=== PATIENT | female | born 1945 | race African-American/Black ===

== ENCOUNTER 2024-02-27 | Emergency (ER) | payer MEDICARE, BC ==
[~2024-02-27] VITALS: Ht 160 cm; Wt 67.0 kg
[2024-02-27 00:03] VITALS: BP 147/79; PULSE 96; RESP 14; TEMP 97.6; O2SAT 99
== END 2024-02-27 01:30 | disposition left against medical advice (07) ==
LOC: ER
DX: R05.9 Cough, unspecified (principal); R07.89 Other chest pain; E11.9 Type 2 diabetes mellitus without complications
CPT/HCPCS: 71045; 93005; 99283

== ENCOUNTER 2025-09-07 12:30 | Emergency (ER) | payer BC, MEDICARE ==
[~2025-09-07] VITALS: Ht 162.6 cm; Wt 64.0 kg
[2025-09-07 12:49] VITALS: O2SAT 99
[2025-09-07] MEDS ORDERED: METF-415 MT (15:31)
[2025-09-07] MEDS ORDERED: ASPI-1406 MT (15:31)
[2025-09-07] MEDS ORDERED: DIVA125T2 MT (15:31)
[2025-09-07] MEDS ORDERED: QUET25TA36 MT (15:31)
[2025-09-07] MEDS ORDERED: HYDR12.54 MT (15:31)
[2025-09-07] MEDS ORDERED: ARIP30TA59 MT (15:31)
[2025-09-07] MEDS ORDERED: CARV25TA47 MT (15:31)
[2025-09-07 16:01] VITALS: BP 165/83; PULSE 73; RESP 16; TEMP 37.1; O2SAT 99
== END 2025-09-07 16:01 | disposition home or self-care (01) ==
LOC: ER 13:05
DX: E11.9 Type 2 diabetes mellitus without complications (principal); Z76.0 Encounter for issue of repeat prescription; Z88.5 Allergy status to narcotic agent; Z79.899 Other long term (current) drug therapy; Z79.84 Long term (current) use of oral hypoglycemic drugs; Z79.82 Long term (current) use of aspirin
CPT/HCPCS: 99282